=== PATIENT | male | born 1995 | race Caucasian/White ===

== ENCOUNTER 2016-12-27 07:56 | Emergency (ER) | payer SELFPAY ==
[~2016-12-27] VITALS: Ht 170.2 cm; Wt 79.0 kg
[2016-12-27 07:56] VITALS: BP 151/77
== END 2016-12-27 08:27 ==
LOC: ED 08:15
DX: Z76.0 Encounter for issue of repeat prescription (principal); F32.9 Major depressive disorder, single episode, unspecified
CPT/HCPCS: 99283

== ENCOUNTER 2016-12-27 11:17 | Emergency (ER) | payer SELFPAY ==
[~2016-12-27] VITALS: Ht 170.2 cm; Wt 75.0 kg
[2016-12-27 11:18] VITALS: BP 150/83
== END 2016-12-27 11:32 | disposition home or self-care (01) ==
LOC: ED 11:26
DX: Z76.0 Encounter for issue of repeat prescription (principal); F31.9 Bipolar disorder, unspecified
CPT/HCPCS: 99281

== ENCOUNTER 2017-10-02 15:49 | Emergency (ER) | payer MEDICAID ==
[~2017-10-02] VITALS: Ht 170.2 cm; Wt 74.4 kg
[2017-10-02 15:51] VITALS: BP 146/87
[2017-10-02 17:15] LABS: RAPID INFLUENZA A Negative (Negative); RAPID INFLUENZA B Negative (Negative)
== END 2017-10-02 18:06 | disposition home or self-care (01) ==
LOC: ED 18:00
DX: B34.9 Viral infection, unspecified (principal); J00 Acute nasopharyngitis [common cold]; J45.909 Unspecified asthma, uncomplicated
CPT/HCPCS: 71046; 87081; 87400; 87880; 93005; 99285

== ENCOUNTER 2017-12-25 06:35 | Emergency (ER) | payer MEDICAID ==
[~2017-12-25] VITALS: Ht 170.2 cm; Wt 71.2 kg
[2017-12-25 06:35] VITALS: BP 137/73
[2017-12-25] MEDS ORDERED: LORazepam 1MG TABLET ONE (06:56)
[2017-12-25] MEDS ORDERED: QUET300T5 PO (06:59)
[2017-12-25] MEDS ORDERED: LORazepam 1MG TABLET PO ONE (07:00)
== END 2017-12-25 07:53 | disposition home or self-care (01) ==
LOC: ED 07:17
DX: F43.0 Acute stress reaction (principal); F31.9 Bipolar disorder, unspecified; J45.909 Unspecified asthma, uncomplicated; F17.200 Nicotine dependence, unspecified, uncomplicated
CPT/HCPCS: 71046; 93005; 99284

== ENCOUNTER 2018-04-05 16:31 | Emergency (ER) | payer MEDICAID ==
[~2018-04-05] VITALS: Ht 170.2 cm; Wt 66.7 kg
[~2018-04-05 16:31] MED LIST: QUET300T5 PO
[2018-04-05 16:33] VITALS: BP 126/75
[2018-04-05] MEDS ORDERED: HYDROcodone/APAP 5/325 TABLET ONE (17:05)
[2018-04-05] MEDS ORDERED: HYDROcodone/APAP 5/325 TABLET PO ONE (17:30)
[2018-04-05] MEDS ORDERED: IBUPROFEN 200 MG TABLET ONE (17:55)
[2018-04-05] MEDS ORDERED: IBUPROFEN 200 MG TABLET PO ONE (18:00)
== END 2018-04-05 18:05 | disposition home or self-care (01) ==
LOC: ED 17:11
DX: S80.212A Abrasion, left knee, initial encounter (principal); M25.521 Pain in right elbow; F17.200 Nicotine dependence, unspecified, uncomplicated; W19.XXXA Unspecified fall, initial encounter; Y93.89 Activity, other specified; Y99.8 Other external cause status; Y92.009 Unspecified place in unspecified non-institutional (private) residence as the place of occurrence of the external cause
CPT/HCPCS: 99284

== ENCOUNTER 2019-11-05 17:18 | Emergency (ER) | payer MEDICAID, OTHER ==
[~2019-11-05] VITALS: Ht 170.2 cm; Wt 82.0 kg
[2019-11-05 17:19] VITALS: BP 144/74
== END 2019-11-05 18:00 | disposition home or self-care (01) ==
LOC: ED 17:50
DX: F33.9 Major depressive disorder, recurrent, unspecified (principal); Z76.0 Encounter for issue of repeat prescription; F17.200 Nicotine dependence, unspecified, uncomplicated
CPT/HCPCS: 99283